=== PATIENT | female | born 1965 | race Caucasian/White ===

== ENCOUNTER → 2024-01-10 07:43 | Outpatient (REF) | payer BC, SELFPAY | LOC: HWRAD 07:43 | PROVIDERS: ATTENDING PHYSICIAN Family Medicine | DX: R10.31 Right lower quadrant pain (principal) | CPT/HCPCS: 74177; Q9967 ==

== ENCOUNTER → 2024-02-15 09:36 | Outpatient (REF) | payer BC, SELFPAY | LOC: RAD 09:36 | PROVIDERS: ATTENDING PHYSICIAN Otolaryngology; FAMILY PHYSICIAN Family Medicine | DX: R13.14 Dysphagia, pharyngoesophageal phase (principal) | CPT/HCPCS: 74221 ==

== ENCOUNTER → 2024-04-21 12:58 | Outpatient (REF) | payer BC, SELFPAY | LOC: RAD 12:58 | PROVIDERS: ATTENDING PHYSICIAN Internal Medicine Endocrinology, Diabetes & Metabolism; FAMILY PHYSICIAN Family Medicine | DX: E04.2 Nontoxic multinodular goiter (principal) | CPT/HCPCS: 76536 ==

== ENCOUNTER → 2025-06-25 08:46 | Outpatient (REF) | payer BC, SELFPAY | LOC: HWRAD 08:46 | PROVIDERS: ATTENDING PHYSICIAN Family Medicine; FAMILY PHYSICIAN Family Medicine | DX: R74.01 Elevation of levels of liver transaminase levels (principal) | CPT/HCPCS: 76700 ==